=== PATIENT | male | born 1980 | race African-American/Black ===

== ENCOUNTER 2021-12-29 11:52 | Outpatient (CLI) | payer OTHER ==
[2021-12-29 12:49] LABS: #Basophils 0.1 10x3/uL (0.0-0.2); #Eosinphils 0.3 10x3/uL (0.0-0.5); #Monocytes 0.3 10x3/uL (0.0-1.1); #Neutrophils 2.5 10x3/uL (1.5-8.4); %Eosinophils 5.3 % (0.0-6.0); %Lymphocytes 39.2 % (18.0-47.0); %Monocytes 6.3 % (0.0-10.0); %Neutrophils 47.2 % (40.0-75.0); Hemoglobin 14.7 g/dL (13.5-17.5); Mean Corpuscular HGB CONC 33.5 g/dL (32.0-36.0); Mean Corpuscular Hemoglobin 26.3 pg (27.0-33.0); Mean Corpuscular Volume 78.4 fl (81.2-95.1); Platelet Count 279 10x3/uL (150-450); RBC Distribution Width 13.2 % (11.5-14.5); White Blood Cell (WBC) Count 5.3 10x3/uL (3.5-10.5)
[2021-12-29 13:00] LABS: Anion Gap 13 mmol/L (10-20); BUN (Urea Nitrogen) 13 mg/dL (8.9-20.6); Calc. Creatinine Clearance 0 mL/min (70-130); Carbon Dioxide 26 mmol/L (22-29); Chloride 102 mmol/L (98-107); Estimated GFR 95; Glucose 86 mg/dL (70-105); Potassium 4.2 mmol/L (3.5-5.1); Sodium 137 mmol/L (136-145)
== END 2021-12-29 11:53 | disposition home or self-care (01) ==
LOC: LABBT 11:52
PROVIDERS: ATTEND Specialist
DX: Z01.812 Encounter for preprocedural laboratory examination (principal); K60.3 Anal fistula; Z20.822 Contact with and (suspected) exposure to COVID-19
CPT/HCPCS: 80048; 85025; 87811

== ENCOUNTER 2021-12-31 08:56 | Day surgery (SDC) | payer OTHER ==
[2021-12-30 09:37] VITALS: BMI 32.1
[2021-12-31] MEDS ORDERED: Acetaminophen 500 MG TAB ONE (09:23)
[2021-12-31] MEDS ORDERED: Ketorolac Tromethamine 30 MG/ML VIAL ONE (09:23)
[2021-12-31] MEDS ORDERED: Lidocaine 1% w/Epinephrine 1:100K 20 ML VIAL ONE (11:17)
[2021-12-31] MEDS ORDERED: Bupivacaine 0.25% HCL 30 ML VIAL ONE (11:17)
[2021-12-31] MEDS ORDERED: CEFAZOLIN 2 GM VIAL ONE (11:21)
[2021-12-31] MEDS ORDERED: Sodium Chloride 0.9% 100 ML ONE (11:21)
[2021-12-31] MEDS ORDERED: Midazolam HCl 2 mg/2 ml Vial ONE ×2 (11:23→11:29)
[2021-12-31] MEDS ORDERED: fentaNYL Citrate/PF 100 MCG/2 ML SYRINGE ONE (11:29)
[2021-12-31] MEDS ORDERED: Lidocaine 1% PF 5 ML VIAL ONE (11:36)
[2021-12-31] MEDS ORDERED: PROPOFOL 200 MG/20 ML VIAL ONE (11:36)
[2021-12-31] MEDS ORDERED: Dexamethasone 20 MG/5 ML VIAL ONE (11:36)
[2021-12-31] MEDS ORDERED: Ondansetron PF 4 MG/2 ML Vial ONE (11:36)
[2021-12-31] MEDS ORDERED: HYDROcodone/Acetaminophen 5/325 mg Tablet ONE (13:11)
== END 2021-12-31 14:00 | disposition home or self-care (01) ==
LOC: SDC 08:56
PROVIDERS: ATTEND Specialist
PROC: 0H88XZZ Division of Buttock Skin, External Approach (ICD-10-PCS; principal; 2021-12-31)
DX: K60.3 Anal fistula (principal); J45.909 Unspecified asthma, uncomplicated; Z86.16 Personal history of COVID-19; Z79.899 Other long term (current) drug therapy
CPT/HCPCS: J0690; J1100; J1885; J2250; J2405; J2704; J3490; S0020